=== PATIENT | male | born 1970 | race African-American/Black ===

== ENCOUNTER 2019-01-05 11:06 | Emergency (ER) | payer SELFPAY ==
[~2019-01-05] VITALS: Ht 190.5 cm; Wt 118.0 kg
[2019-01-05 12:00] VITALS: BP 125/79
[2019-01-05] MEDS: DIAZEPAM 5 MG TABLET PO ONE (12:00)
[2019-01-05] MEDS: IBUPROFEN 800MG TABLET PO ONE (12:00)
== END 2019-01-05 13:48 | disposition home or self-care (01) ==
LOC: ER 11:06
DX: S29.012A Strain of muscle and tendon of back wall of thorax, initial encounter (principal); S46.911A Strain of unspecified muscle, fascia and tendon at shoulder and upper arm level, right arm, initial encounter; M77.31 Calcaneal spur, right foot; E11.9 Type 2 diabetes mellitus without complications; X58.XXXA Exposure to other specified factors, initial encounter; Y93.89 Activity, other specified; Y92.89 Other specified places as the place of occurrence of the external cause; Y99.8 Other external cause status
CPT/HCPCS: 72040; 72070; 73030; 99283

== ENCOUNTER 2021-09-08 09:46 | Emergency (ER) | payer BC ==
[~2021-09-08] VITALS: Ht 190.5 cm; Wt 118.0 kg
[2021-09-08] MEDS ORDERED: IBUPROFEN 800MG TABLET PO ONE (10:30)
[2021-09-08] MEDS ORDERED: METHOCARBAMOL 750MG TABLET PO SCH (14:00)
[2021-09-08] MEDS ORDERED: IBUP-2029 MT (15:47)
[2021-09-08] MEDS ORDERED: METH-653 MT (15:47)
[2021-09-08 16:03] VITALS: BP 140/90
== END 2021-09-08 16:04 | disposition home or self-care (01) ==
LOC: ER 09:46
DX: M54.50 Low back pain, unspecified (principal); I10 Essential (primary) hypertension; E11.9 Type 2 diabetes mellitus without complications; Z91.030 Bee allergy status; W01.0XXA Fall on same level from slipping, tripping and stumbling without subsequent striking against object, initial encounter; Y93.89 Activity, other specified; Y92.89 Other specified places as the place of occurrence of the external cause; Y99.8 Other external cause status
CPT/HCPCS: 72100; 72148; 99284